=== PATIENT | female | born 1980 | race Caucasian/White ===

== ENCOUNTER 2024-04-04 10:14 | Outpatient (CLI) | payer OTHER | END 2024-04-04 10:19 | disposition home or self-care (01) | LOC: MAMO-SONO 10:14 | PROVIDERS: ATTEND Obstetrics & Gynecology | DX: N60.11 Diffuse cystic mastopathy of right breast (principal); N60.12 Diffuse cystic mastopathy of left breast; Z12.31 Encounter for screening mammogram for malignant neoplasm of breast ==

== ENCOUNTER 2024-04-21 07:52 | Outpatient (CLI) | payer OTHER ==
[2024-04-21 10:54] LABS: PH,URINE 6.5 (5.0-8.0); URINE APPEARANCE Clear; URINE BILIRRUBIN Negative (NEGATIVE); URINE BLOOD Negative; URINE COLOR Yellow; URINE GLUCOSE Negative (NEGATIVE); URINE KETONE Trace (NEGATIVE); URINE LEUKOCYTE Negative; URINE NITRATE Negative; URINE PROTEIN Negative (NEGATIVE); URINE UROBILINOGEN 0.2 E.U./dl
[2024-04-21 10:55] LABS: URINE BACTERIA 530.2 uL (0.0-1933); URINE EPITHELIAL CELLS 24.7 uL (0.0-38.8); URINE RBC 5.1 uL (0.0-20.8); URINE WBC 13.2 uL (0.0-23.2)
[2024-04-21 10:58] LABS: HEMATOCRIT 34.4 % (36.0-45.00); HEMOGLOBIN 11.2 g/dL (12.0-15.00); MEAN CORPUSCULAR HEMOGLOBIN 25.5 pg (27.00-32.0); MEAN CORPUSCULAR HGB CONC 32.7 g/dl (32.0-36.0); PLATELET COUNT 311 K/uL (150-450); RED BLOOD COUNT 4.41 M/uL (4.00-6.00); RED CELL DISTRIBUTION WIDTH 15.5 % (11.5-14.5)
[2024-04-21 11:54] LABS: VITAMIN D3 25 HYDROXY 43.35 ng/ml (30-120)
[2024-04-21 12:05] LABS: ALBUMIN 4.3 gm/dL (3.4-5.0); BILIRUBIN TOTAL 0.54 mg/dL (0.3-1.2); CHOL HDL RATIO 2.6 (0-5.0); CREATININE SERUM 0.52 mg/dL (0.55-1.02); FREE TRIODOTIRONINE 2.43 pg/ml (2.18-3.98); GFR 128.1; GLOBULINA 3.5 G/DL (2.4-3.5); POTASSIUM 3.78 mEq/L (3.5-5.1); T4 TOTAL 8.12 UG/DL (4.8-13.9); TOTAL PROTEIN 7.8 gm/dL (6.4-8.2); TSH 1.17 uIU/mL (0.358-3.74)
[2024-04-22 09:07] LABS: ANTI THYROID PEROXIDASE < 9 IU/mL (0-34)
[2024-04-22 12:08] LABS: ob NEGATIVE (NEGATIVE)
== END 2024-04-21 07:53 | disposition home or self-care (01) ==
LOC: LAB 07:52
PROVIDERS: ATTEND Obstetrics & Gynecology
DX: N95.1 Menopausal and female climacteric states (principal); E28.9 Ovarian dysfunction, unspecified; E04.1 Nontoxic single thyroid nodule; E55.9 Vitamin D deficiency, unspecified; E78.00 Pure hypercholesterolemia, unspecified; E08.00 Diabetes mellitus due to underlying condition with hyperosmolarity without nonketotic hyperglycemic-hyperosmolar coma (NKHHC); N39.0 Urinary tract infection, site not specified; R19.5 Other fecal abnormalities; R97.8 Other abnormal tumor markers; E11.9 Type 2 diabetes mellitus without complications; K76.9 Liver disease, unspecified

== ENCOUNTER → 2024-09-25 11:06 | Outpatient (CLI) | payer OTHER ==
[2024-09-25 12:56] LABS: CHOL HDL RATIO 2.3 (0-5.0); TSH 1.07 uIU/mL (0.358-3.74)
== END | disposition home or self-care (01) ==
LOC: LAB 11:06
PROVIDERS: ATTEND Obstetrics & Gynecology
DX: E78.00 Pure hypercholesterolemia, unspecified (principal); N92.1 Excessive and frequent menstruation with irregular cycle; E04.1 Nontoxic single thyroid nodule

== ENCOUNTER 2025-02-14 09:33 | Outpatient (CLI) | payer OTHER ==
[2025-02-14 10:32] LABS: BASO % 0.8 % (0.1-1.2); EOS # 0.06 (0.04-0.54); EOS % 1.1 % (0.7-7.0); LYMPH # 1.91 (1.18-3.74); LYMPH % 35.9 % (19.3-53.1); MEAN PLATELET VOLUME 9.70 fl (9.4-12.4); MONO # 0.59 (0.24-0.82); MONO % 11.1 % (4.7-12.5); NEUT # 2.71 (1.56-6.13); NEUT % 50.9 % (34.0-71.1); RED CELL DISTRIBUTION WIDTH 16.5 % (11.6-14.4)
[2025-02-14 10:36] LABS: URINE APPEARANCE Clear; URINE BILIRRUBIN Negative (NEGATIVE); URINE BLOOD Small; URINE COLOR Yellow; URINE GLUCOSE Negative (NEGATIVE); URINE KETONE Trace (NEGATIVE); URINE LEUKOCYTE Negative; URINE NITRATE Negative; URINE PROTEIN Negative (NEGATIVE); URINE UROBILINOGEN 0.2 E.U./dl
[2025-02-14 10:38] LABS: URINE BACTERIA 359.9 uL (0.0-1933); URINE EPITHELIAL CELLS 19.2 uL (0.0-38.8); URINE RBC 13.9 uL (0.0-20.8); URINE WBC 4.9 uL (0.0-23.2)
[2025-02-14 10:39] LABS: URINE CAST 0.29 uL (0.0-1.40)
[2025-02-14 11:05] LABS: ALT/SGPT 25.0 U/L (12-78); AST/SGOT 14.0 U/L (15-37); BILIRUBIN TOTAL 0.52 mg/dL (0.3-1.2); BUN CREA RATIO 13.0 (7.0-25.0); CHOL HDL RATIO 2.4 (0-5.0); CREATININE SERUM 0.71 mg/dL (0.55-1.02); GFR 89.02; GLOBULINA 3.4 G/DL (2.4-3.5); GLUCOSE FASTING 92.0 mg/dL (65-100); HDL 82.0 mg/dl (40-60); LDL 97.0 mg/dl (0-130); OSMOLALITY SERUM 283.0 MOSM/KG (275-295); T4 FREE 0.96 NG/ML (0.76-1.46); TSH 1.29 uIU/mL (0.358-3.74); VLDL 18.0 (0-39)
[2025-02-14 11:18] LABS: T3 TOTAL 1.54 ng/ml (0.846-2.02); VITAMIN D3 25 HYDROXY 75.72 ng/ml (30-120)
== END 2025-02-14 09:39 | disposition home or self-care (01) ==
LOC: LAB 09:33
DX: E55.9 Vitamin D deficiency, unspecified (principal); D64.9 Anemia, unspecified; R10.9 Unspecified abdominal pain; E11.9 Type 2 diabetes mellitus without complications; E78.00 Pure hypercholesterolemia, unspecified; R80.9 Proteinuria, unspecified; K92.1 Melena; E03.9 Hypothyroidism, unspecified; N39.0 Urinary tract infection, site not specified; M81.0 Age-related osteoporosis without current pathological fracture

== ENCOUNTER 2025-02-14 10:38 | Outpatient (CLI) | payer OTHER | END 2025-02-14 10:39 | disposition home or self-care (01) | LOC: TOM 10:38 | DX: R10.2 Pelvic and perineal pain (principal) ==

== ENCOUNTER 2025-02-15 09:36 | Outpatient (CLI) | payer OTHER ==
[2025-02-15 11:13] LABS: ob NEGATIVE (NEGATIVE)
== END 2025-02-15 09:40 | disposition home or self-care (01) ==
LOC: LAB 09:36
DX: E55.9 Vitamin D deficiency, unspecified (principal); D64.9 Anemia, unspecified; R10.9 Unspecified abdominal pain; E11.9 Type 2 diabetes mellitus without complications; E78.00 Pure hypercholesterolemia, unspecified; R80.9 Proteinuria, unspecified; K92.1 Melena; E03.9 Hypothyroidism, unspecified; N39.0 Urinary tract infection, site not specified; M81.0 Age-related osteoporosis without current pathological fracture